=== PATIENT | male | born 1995 | race Caucasian/White ===

== ENCOUNTER → 2020-11-05 00:08 | Outpatient (CLI) | payer OTHER, SELFPAY ==
[2020-11-05 18:28] LABS: SARS-CoV-2 RNA PCR Negative
== END ==
PROVIDERS: PCP Family Medicine Adolescent Medicine; Visit Provider Surgery
DX: Z01.812 Encounter for preprocedural laboratory examination (principal); Z20.822 Contact with and (suspected) exposure to COVID-19
CPT/HCPCS: C9803; U0003; U0005

== ENCOUNTER 2020-11-08 00:37 | Day surgery (SDC) | payer OTHER, SELFPAY ==
[2020-11-05 09:48] VITALS: BMI 33.0
--- NOTE | 2020-11-06 12:14 | PM.SD2 ---
Same Day Admit/Disch: HPI History of Present Illness Chief complaint: Complicated Pilonidal Cyst Narrative: Carlos Haney is a 24 year old male Who presented to the office in late August with a long-standing chronic pilonidal cyst. The cyst is complicated but there is no abscess. There are 3 openings and multiple pits in the upper gluteal crease. I attempted to probe and manage the pilonidal cyst in the office but it was very tender and I was unable to do so. He is taken to surgery now for I and D of this complicated pilonidal cyst under anesthesia as an outpatient. [facility] Past Medical History Medical History (Updated 11/06/20 @ 12:18 by Jeffrey Sewell MD) Asthma Surgical History Surgical History Hx of left knee surgery Family History Family History Father Family history of elevated blood lipids Cancer of appendix Other Diabetes mellitus Family history of allergic disorder Hypertension Social History Social History Years smoked: 7 Smoking status: Current every day smoker Tobacco type: cigars and smokeless tobacco Smokeless tobacco user: snuff Second hand tobacco smoke exposure: No Additional smoking assessment comments: 1-2 cigars per day; chews occasionally Alcohol intake: current Drinks per week: 2 Alcohol use details: occasionally Substance use: never Living arrangements: with family 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 Spiritual care concerns: No Same Day Admit/Disch: Med Pre-admit Medications Home Medications Medication Instructions Recorded Confirmed Type albuterol sulfate 90 mcg/actuation 1 inh INHALATION Q4H PRN 09/24/20 09/24/20 History aerosol inhaler budesonide-formoterol [Symbicort] 2 puff INHALATION BID 11/05/20 11/08/20 History hydrocodone-acetaminophen 1 - 2 tablet PO Q6H PRN #15 tablet 11/08/20 Rx ketorolac 10 mg PO Q6H 4 Days #16 tablet 11/08/20 Rx Exam Const: General: comfortable, no acute distress, alert and awake HENMT: Head: normocephalic and atraumatic Mouth: Yes Normal oral and palatal mucosa present Eyes: Conjunctivae: conjunctivae normal Pupils: Equal, round and reactive pupils present EOM: EOMs intact bilaterally Neck: Neck: normal visual inspection, no lymphadenopathy and nontender Resp: Effort & Inspection: normal respiratory effort Auscultation: clear to auscultation bilaterally Cardio: Rate: regular rate Rhythm: regular rhythm Heart sounds: no gallops, no murmurs and no rubs GI: Inspection: non-distended GI Palp: Yes Soft to palpation, No Tenderness to palpation present (GI), No Hepatomegaly present and No Splenomegaly present Rectal Exam: pilonidal cyst ( Two left-sided openings and 1 on the right in the upper gluteal crease. ) and tenderness Other: Multiple pits associated with the gluteal crease and pilonidal cyst. Skin: Lesions: no lesions Rashes: no rashes Neuro: General: no focal motor deficits and CN's II-XI intact bilaterally Cranial nerves: Yes Equal, round and reactive pupils present, Yes Bilaterally intact EOM present, Yes facial symmetry and Yes Midline tongue present Speech: normal speech Motor exam (neuro): 5/5 motor strength present throughout and Motor abnormalities not present Extrem: General: no clubbing, cyanosis or edema and edema Psych: Affect: normal affect Thought process: Normal thought process present Insight: Good insight present (Psych) DS: Summary Time Spent with Patient Time attestation: Total time spent providing and/or coordinating discharge services: DS: Admitting Diagnosis Admitting Diagnosis Admitting Diagnosis: Complicated pilonidal cyst-- plan to proceed with outpatient incision and drainage of complicated pilonidal cyst under anesthesia. The procedure the risks the benefits and
[2020-11-08] VITALS (9 sets, daily range): BP systolic 118–146; BP diastolic 66–97; PULSE 76–97; RESP 16–20; TEMP 36.3–36.5; O2SAT 99–100
[2020-11-08] MEDS: LACTATED RINGERS 1,000 ML 30 ML IV CONT (10:43)
--- NOTE | 2020-11-08 11:42 | P.PNAN_ITS ---
Anes - Initial Pre Proc Eval Procedure: Operation Date: 11/08/20 12:00 Proposed Procedures p Incision And Drainage Of A Complicated Pilonidal Cyst - Jeffrey Sewell MD Date/Time: 11/08/20 11:42 Surgeon: Jeffrey Sewell MD Pre Op Diagnosis: Complicated Pilonidal Cyst Patient Data Age: 24 Gender: M Height: 5 ft 10 in Weight: 104.4 kg Last Vital Signs Temp 97.7 F 11/08/20 10:34 Pulse 79 11/08/20 10:34 Resp 20 11/08/20 10:34 BP 137/90 11/08/20 10:34 Pulse Ox 99 11/08/20 10:34 Allergies Allergy/AdvReac Type Severity Reaction Status Date / Time peanut Allergy Severe Anaphylaxis Verified 11/08/20 10:29 latex Allergy Mild Swelling Verified 11/08/20 10:29 Home Medications Medication Instructions Recorded Confirmed Type albuterol sulfate 90 mcg/actuation 1 inh INHALATION Q4H PRN 09/24/20 09/24/20 History aerosol inhaler budesonide-formoterol [Symbicort] 2 puff INHALATION BID 11/05/20 11/08/20 History Patient hx anesthesia problems: none Family hx anesthesia problems: none PMFSH Past Medical History Medical History (Updated 11/06/20 @ 12:18 by Jeffrey Sewell MD) Asthma Surgical History Surgical History Hx of left knee surgery Family History Family History Father Family history of elevated blood lipids Cancer of appendix Other Diabetes mellitus Family history of allergic disorder Hypertension Social History Social History Years smoked: 7 Smoking status: Current every day smoker Tobacco type: cigars and smokeless tobacco Smokeless tobacco user: snuff Second hand tobacco smoke exposure: No Additional smoking assessment comments: 1-2 cigars per day; chews occasionally Alcohol intake: current Drinks per week: 2 Alcohol use details: occasionally Substance use: never Living arrangements: with family 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 Questions were solicited and answers provided to the satisfaction of the patient/family/POA.
--- NOTE | 2020-11-08 11:44 | WPDHPUPDATE1 ---
History and Physical Update Update Date/Time: 11/08/20 11:44 History and Physical has been reviewed, including an updated exam of the patient. There are NO changes in the patient's condition. Risks, benefits, and alternatives have been discussed and questions answered. Patient agrees to proceed with procedure.
[2020-11-08] MEDS: ceFAZolin 2 GM/D5W 50 ML 2 GM/50 ML BAG IVPB (11:46)
[2020-11-08] MEDS: SILVERGEL (ELTA) 45 ML 1 APPLIC TOPICAL (12:32)
[2020-11-08] MEDS: BUPIVACAINE/EPINEPHRINE 0.5% 30 ML VIAL INFILTRATE (12:32)
--- NOTE | 2020-11-08 12:49 | PM.PROC ---
Procedure Note - Detailed Date of procedure: 11/08/20 Pre-op diagnosis: Complicated Pilonidal Cyst Complicated pilonidal cyst Post-op diagnosis: same Procedure performed: Incision and drainage complicated pilonidal cyst with marsupialization. Description of procedure: The patient was taken to surgery and induced into general anesthesia. He was turned into a prone position. The upper gluteal crease was shaved thoroughly. Loose hair was removed. The buttocks were taped apart. Prep and drape was carried out. A probe was used and the opening on the right upper gluteal crease area was probed. This tracked right to the midline in the area of the coccyx. With a clamp, I tried remove hair and any inflammatory tissue through a small opening made at the exit site of the tract. I was unable to get it thoroughly cleaned. I then opened the tract over a clamp. I exposed the entirety of the pilonidal cyst. It had a well-formed wall. I removed the remaining hair and granulation tissue from the pilonidal cyst. I then sutured the well-formed edges of the cyst to the skin with 3 0 chromic suture in interrupted fashion. This marsupialized the cyst well. I infiltrated the entire wound and the surrounding skin with local anesthetic. I then covered the base of the wound with silver gel. 1/2 inch iodoform Nu Gauze was used to pack the wound. Fluffs were placed over the wound with paper tape and then promise panties. The patient was returned to a supine position, extubated and awakened. He was then transferred to recovery in good condition. Sponge and needle counts were correct x2. Anesthesia: GETA and local (0.5% Marcaine with epinephrine) Surgeon: Jeffrey Sewell MD [employer] Supervisor: Pina LAYTON Estimated blood loss (mL): 5 Drains: No Packing: Yes (1/2 inch iodoform Nu Gauze) Pathology: none sent Complications: None Condition: stable Disposition: PACU Findings: Complicated pilonidal cyst
== END 2020-11-08 14:14 | disposition home or self-care (01) ==
PROVIDERS: Family Provider Family Medicine Adolescent Medicine; PCP Family Medicine Adolescent Medicine; Visit Provider Surgery
PROC: (CPT 11772; principal; 2020-11-08 12:00)
DX: L05.91 Pilonidal cyst without abscess (principal); J45.909 Unspecified asthma, uncomplicated; F17.290 Nicotine dependence, other tobacco product, uncomplicated; F17.220 Nicotine dependence, chewing tobacco, uncomplicated
CPT/HCPCS: 11772; A9270; C9803; J0330; J0690; J2250; J2704; J3010; J7120; U0003; U0005